=== PATIENT | female | born 1985 | race Two or more races ===

== ENCOUNTER 2018-03-07 15:02 | Emergency (ER) | payer SELFPAY ==
[~2018-03-07] VITALS: Ht 165.1 cm; Wt 63.0 kg
[2018-03-07 18:49] VITALS: BP 119/89
== END 2018-03-07 18:58 | disposition home or self-care (01) ==
LOC: ER 15:02
DX: R07.89 Other chest pain (principal); F41.0 Panic disorder [episodic paroxysmal anxiety]; F12.10 Cannabis abuse, uncomplicated; Z88.0 Allergy status to penicillin
CPT/HCPCS: 71045; 81025; 93005; 99284

== ENCOUNTER 2020-06-29 16:11 | Emergency (ER) | payer OTHER ==
[~2020-06-29] VITALS: Ht 157.5 cm; Wt 65.0 kg
[2020-06-29 16:17] VITALS: BP 122/82
== END 2020-06-29 19:01 | disposition left against medical advice (07) ==
LOC: ER 16:11
DX: R42 Dizziness and giddiness (principal); Z53.21 Procedure and treatment not carried out due to patient leaving prior to being seen by health care provider

== ENCOUNTER 2020-12-08 14:22 | Emergency (ER) | payer OTHER ==
[~2020-12-08] VITALS: Ht 157.5 cm; Wt 73.0 kg
[2020-12-08] MEDS ORDERED: IBUPROFEN 400MG TABLET PO ONE (17:15)
[2020-12-08 17:27] LABS: BASOPHILS % 0.2 % (0.0-2.0); EOSINOPHILS % 0.4 % (0.0-5.0); HEMATOCRIT. 41.1 % (36.0-48.0); HEMOGLOBIN. 13.6 g/dL (12.0-16.0); LYMPHOCYTES % 14.2 % (20.0-50.0); MEAN CORPUSCULAR HEMOGLOBIN 26.4 pg (28.0-32.0); MEAN CORPUSCULAR VOLUME 79.7 fL (81.0-99.0); MEAN PLATELET VOLUME 8.2 fl (7.4-10.4); MONOCYTES % 7.2 % (2.0-8.0); PLATELET 382 x1000/uL (130-400); RED BLOOD CELL COUNT 5.15 mill/uL (4.2-5.4); RED CELL DISTRIBUTION WIDTH 15.5 % (11.6-14.6)
[2020-12-08 17:30] VITALS: BP 148/80
[2020-12-08 17:36] LABS: CHLORIDE 110 mEq/L (98-107)
[2020-12-08 17:39] LABS: HCG SCREEN NEGATIVE
[2020-12-08 17:40] LABS: ETHANOL BLOOD < 10 mg/dL
[2020-12-08] MEDS ORDERED: IBUP-2028 MT (18:29)
== END 2020-12-08 18:43 | disposition home or self-care (01) ==
LOC: ER 14:22
DX: R07.89 Other chest pain (principal); Y08.89XA Assault by other specified means, initial encounter; Y93.89 Activity, other specified; Y92.9 Unspecified place or not applicable; Z88.0 Allergy status to penicillin
CPT/HCPCS: 36415; 71045; 80053; 80320; 81025; 84703; 85025; 93005; 99285; G0480

== ENCOUNTER 2022-07-04 06:44 | Emergency (ER) | payer OTHER ==
[~2022-07-04] VITALS: Ht 165.1 cm; Wt 68.0 kg
[~2022-07-04 06:44] MED LIST: IBUP-2028 MT
[2022-07-04] MEDS ORDERED: IBUPROFEN 400MG TABLET PO ONE (08:15)
[2022-07-04 08:26] VITALS: BP 171/105
[2022-07-04] MEDS ORDERED: IBUP-2028 MT (09:44)
== END 2022-07-04 10:15 | disposition home or self-care (01) ==
LOC: ER 06:59
DX: S62.625A Displaced fracture of middle phalanx of left ring finger, initial encounter for closed fracture (principal); X58.XXXA Exposure to other specified factors, initial encounter; Y93.89 Activity, other specified; Y92.9 Unspecified place or not applicable; Z88.0 Allergy status to penicillin
CPT/HCPCS: 29130; 73140; 99283

== ENCOUNTER 2024-10-08 02:15 | Emergency (ER) | payer MEDICAID, OTHER ==
[~2024-10-08] VITALS: Ht 162.6 cm; Wt 77.0 kg
[2024-10-08 02:51] VITALS: O2SAT 99
[2024-10-08] MEDS ORDERED: BO1 TP (03:27)
[2024-10-08] MEDS: TETANUS, DIPHTHERIA, PERTUSSIS VAC/PF 0.5ML (>10YR OLD) IM ONE (03:40)
[2024-10-08] MEDS: BACITRACIN ZINC OINT UDPKT TOP ONE (03:40)
[2024-10-08 03:41] VITALS: BP 150/84; PULSE 84; RESP 18; TEMP 36.7; O2SAT 99
== END 2024-10-08 03:43 | disposition home or self-care (01) ==
LOC: ER 02:15
DX: S61.211A Laceration without foreign body of left index finger without damage to nail, initial encounter (principal); F12.10 Cannabis abuse, uncomplicated; Z88.0 Allergy status to penicillin; Z90.49 Acquired absence of other specified parts of digestive tract; W26.0XXA Contact with knife, initial encounter; Y93.89 Activity, other specified; Y92.89 Other specified places as the place of occurrence of the external cause; Y99.8 Other external cause status
CPT/HCPCS: 73130; 90715; 90471; 99283; Z7610; 12001

== ENCOUNTER 2025-02-24 11:44 | Emergency (ER) | payer MEDICAID ==
[~2025-02-24] VITALS: Ht 165.1 cm; Wt 74.0 kg
[~2025-02-24 11:44] MED LIST changes: +BO1 TP
[2025-02-24 11:45] VITALS: O2SAT 100
[2025-02-24] MEDS: HYDROCODONE/ACETAMINOPHEN 7.5/325MG TABLET PO ONE (12:43)
[2025-02-24] MEDS: BACITRACIN ZINC OINT UDPKT TOP ONE (13:22)
[2025-02-24] MEDS ORDERED: IBUP-2030 MT (13:49)
[2025-02-24] MEDS: AMLODIPINE 10MG TABLET PO ONE (14:04)
[2025-02-24 14:05] VITALS: BP 143/87; PULSE 75; RESP 12; TEMP 37; O2SAT 98
== END 2025-02-24 14:10 | disposition home or self-care (01) ==
LOC: ER 11:44
DX: S50.312A Abrasion of left elbow, initial encounter (principal); S50.311A Abrasion of right elbow, initial encounter; S80.212A Abrasion, left knee, initial encounter; S80.211A Abrasion, right knee, initial encounter; R51.9 Headache, unspecified; L02.33 Carbuncle of buttock; Z88.0 Allergy status to penicillin; Z90.49 Acquired absence of other specified parts of digestive tract; V00.141A Fall from scooter (nonmotorized), initial encounter; Y93.89 Activity, other specified; Y92.009 Unspecified place in unspecified non-institutional (private) residence as the place of occurrence of the external cause; Y99.8 Other external cause status
CPT/HCPCS: 70450; 72125; 99284; Z7610 ×2